=== PATIENT | male | born 1955 | race Caucasian/White ===

== ENCOUNTER 2017-01-09 09:59 | Day surgery (SDC) | payer OTHER ==
[~2017-01-09] VITALS: Ht 182.9 cm; Wt 77.9 kg
[2017-01-09 11:32] VITALS: Ht 182.9 cm; Wt 77.9 kg
[2017-01-09] MEDS ORDERED: PEPCID (11:47)
[2017-01-09] MEDS ORDERED: LISINOPRIL (11:47)
[2017-01-09 11:57] VITALS: BP 134/88; PULSE 86; RESP 26
[2017-01-09] MEDS ORDERED: MIDAZOLAM 1 MG/ML 2 ML INJ ONE ×3 (12:52→12:53)
[2017-01-09 13:05] VITALS: BP 148/98; PULSE 72; RESP 18
[2017-01-09] MEDS ORDERED: FLUMAZENIL 0.5 MG INJ ONE (13:10)
[2017-01-09] MEDS ORDERED: FENTAnyl 50 MCG/ML VIAL ONE (13:11)
--- NOTE | 2017-01-09 13:36 | GILP ---
DATE OF PROCEDURE: NAME OF PROCEDURES: 1. Colonoscopy and biopsy. 2. Tattooing with Ansley ink. INDICATION FOR THE PROCEDURE: Mr. Angel Mcgrath is a 61-year-old male patient who was scheduled for screening colonoscopy. The procedure and possible complications were well explained to the patient, he understood and conse nted to the procedure. DESCRIPTION OF PROCEDURE: Under the influence of fentanyl and Versed, the colonoscope was carefully introduced in the rectum and under direct vision, it was advanced all the way to the cecum. FINDINGS: The patient was noted to have a large sigmoid colon polyp with a thick stalk at 23 cm fro m the anus. It was too big to be removed, so biopsies were taken. The area was tattooed with Ansley ink. He was also noted to have another small polyp in the sigmoid colon and it was removed using t he biopsy forceps. He had diverticulosis of the colon. He also had internal hemorrhoids. He tolerated the procedure very well and there was no complication from the procedure. At the end o f the procedure, he was awake with stable vital signs and he was discharged home to the care of his family. IMPRESSION: 1. Colonoscopy all the way to the cecum. 2. Large sigmoid polyp with a thick stalk at 23 cm from the anus and biopsies were taken for histop athology. 3. The area was tattooed with Ansley ink. 4. Small sigmoid colon polyp was removed using the biopsy forceps. 5. Diverticulosis of the colon. 6. Internal hemorrhoids. PLAN: 1. Await histopathology report. 2. The patient will need surgical removal of the sigmoid polyp because of the large size with thick stalk. Dictated By: VIVIAN KEARNEY/DELGADO Conf#: [id number] DID#: [id number] CC: VIVIAN DOTSON MD;*EndCC*
== END 2017-01-10 08:37 | disposition home or self-care (01) ==
LOC: GIL 09:59
PROVIDERS: ATTEND Internal Medicine Gastroenterology
DX: Z12.11 Encounter for screening for malignant neoplasm of colon (principal); D12.5 Benign neoplasm of sigmoid colon; K57.90 Diverticulosis of intestine, part unspecified, without perforation or abscess without bleeding; I10 Essential (primary) hypertension
CPT/HCPCS: 45380; 45381; 88305; J2250; J3010; Z7610

== ENCOUNTER 2017-03-08 09:32 | Inpatient (IN) | payer OTHER ==
[2017-03-07 12:48] VITALS: Ht 182.9 cm; Wt 75.9 kg
[~2017-03-08] VITALS: Ht 182.9 cm; Wt 75.9 kg
[2017-03-08] VITALS (9 sets, daily range): BP systolic 111–150; BP diastolic 64–89; PULSE 66–86; RESP 16–24
[~2017-03-08 09:32] MED LIST: LISINOPRIL; PEPCID
[2017-03-08] MEDS ORDERED: LISI20TA11 PO (10:25)
[2017-03-08] MEDS ORDERED: FAMO-95 PO (10:26)
[2017-03-08] MEDS ORDERED: FOLI-49 PO (10:27)
[2017-03-08] MEDS ORDERED: MULTI PO (10:28)
[2017-03-08] MEDS ORDERED: CEFAZOLIN 2 GM/50 ML (PMX) 50 ML IVPB SCH (10:42)
[2017-03-08] MEDS ORDERED: Metronidazole 500 MG in NS 100 ML IVPB SCH (10:45)
[2017-03-08] MEDS ORDERED: LACTATED RINGER'S 1,000 ML IV* SCH (10:46)
--- NOTE | 2017-03-08 12:40 | HPN ---
Date/Time of Note Date/Time of Note DATE: 03/08/17 TIME: 12:39 Interval H&P Admission Note Pt. seen H&P reviewed: No system changes LEON RUCKER MD Mar 08, 2017 12:40
[2017-03-08] MEDS ORDERED: morphine SULFATE/PF (10 MG/10 ML) INJ ONE (13:15)
[2017-03-08] MEDS ORDERED: CEFAZOLIN 1 GM INJ ONE (13:47)
[2017-03-08] MEDS ORDERED: metroNIDAZOLE 500 MG/NS (PMX) 100 ML IVPB ONE (13:47)
[2017-03-08] MEDS ORDERED: LIDOCAINE 2% (SDV) 5 ML INJ ONE (13:47)
[2017-03-08] MEDS ORDERED: ROCURONIUM 50 MG INJ ONE (13:47)
[2017-03-08] MEDS ORDERED: SUCCINYLCHOLINE CHLORIDE 100 MG/5 ML SYG IV ONE (13:47)
[2017-03-08] MEDS ORDERED: PROPOFOL 20 ML ONE (13:47)
[2017-03-08] MEDS ORDERED: NALOXONE (0.4 MG/ML) INJ IV PRN (14:30)
[2017-03-08] MEDS ORDERED: DIPHENHYDRAMINE 50 MG INJ IV PRN ×2 (14:30)
[2017-03-08] MEDS ORDERED: PROCHLORPERAZINE 10 MG INJ IV PRN (14:30)
[2017-03-08] MEDS ORDERED: MEPERIDINE 25 MG INJ IV PRN (14:30)
[2017-03-08] MEDS ORDERED: ONDANSETRON 4 MG INJ IV PRN ×3 (14:30→16:00)
[2017-03-08] MEDS ORDERED: HYDROmorphONE 1 MG/ML SYG IV PRN ×3 (14:30→16:00)
[2017-03-08] MEDS ORDERED: METOCLOPRAMIDE 10 MG INJ IV PRN (14:30)
[2017-03-08] MEDS ORDERED: FENTAnyl 50 MCG/ML VIAL IV PRN (14:30)
[2017-03-08] MEDS ORDERED: HYDROmorphONE (0.2 MG/ML) 10ML SYG IV PRN ×3 (14:30)
[2017-03-08] MEDS ORDERED: BUPIVACAINE 0.5% ON-Q-PUMP 270 ML ONE (14:43)
[2017-03-08] MEDS ORDERED: FENTAnyl 50 MCG/ML VIAL ONE (15:13)
[2017-03-08] MEDS ORDERED: BUPIVACAINE 0.5% (SDV) 30 ML INJ ONE (15:18)
[2017-03-08] MEDS ORDERED: SUGAMMADEX SODIUM 200 MG/2 ML VIAL IV ONE (15:34)
--- NOTE | 2017-03-08 15:54 | OPR ---
Date/Time of Note Date/Time of Note DATE: 03/08/17 TIME: 15:41 Operative Report Procedure Date: Mar 08, 2017 Preoperative Diagnosis Sigmoid colon cancer Postoperative Diagnosis (same) Operation Performed 1. Sigmoid colectomy 2. Rigid proctosigmoidoscopy 3. Placement of a postop pain pump Surgeon: LEON RUCKER MD Geography Professor: PATRIZIA AUSTIN M.D. Anesthesia: general Estimated Blood Loss: 50 - 100 ml's Specimens Sigmoid colon Distal margin Complications: None Pt Condition Post Procedure: stable Disposition: PACU Indications Mr. 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 The various treatment options were discussed with the patient, and he elected to proceed with a sigmoidectomy. Informed consent was obtained prior to the procedure. Operative\Procedure Findings Palpable polyp in distal sigmoid colon Procedure Description The patient was brought to the operating room, placed in supine position on the operating room table. Next, after successful administration of general endotracheal anesthesia, the patient was repositioned in the low lithotomy position using Leoncio stirrups. After surgical time-out and administration of perioperative antibiotics, the patient's anterior abdomen, perineum and perianal skin were prepped and draped in the usual sterile fashion and a Degroot urinary catheter was placed under sterile technique. Next, a transverse incision was made approximately 2 fingerbreadths above the patient's pubic symphysis. This incision is approximately 6 cm in length. After making the skin incision with a scalpel, Bovie electrocautery was utilized to dissect downward to reveal the anterior rectus sheath. This was opened transversely using Bovie electrocautery. Next, the anterior rectus sheath was then from the rectus musculature superiorly and inferiorly while tenting up the anterior rectus sheath using Jennifer clamps. The abdomen was then entered in the midline and then making a longitudinal incision between the rectus muscles, taking care not to injure any intraabdominal organs. This was done successfully. Through this Pfannenstiel type incision, an Applied wound retractor was then placed for circumferential wound retraction. We then explored the abdomen through this Pfannenstiel incision and there was no evidence of metastatic disease. Next moist laparotomy pads were then utilized to pack the patient's small intestine out of the pelvis and she was repositioned in the Trendelenburg position. Careful examination of the sigmoid colon revealed a palpable mass in the distal sigmoid colon. This corresponded to her known history of sigmoid colon polyp. We then elected to proceed with a sigmoidectomy via the Pfannenstiel incision due to the extensive redundancy of the patient's sigmoid colon. Next, we divided the bowel using a Contour bowel stapler at the mid sigmoid colon and then used a LigaSure tissue sealing device to divide the sigmoid mesentery towards the root of the superior rectal artery as it came off the inferior mesenteric artery. The proximal colon was then packed off into the upper abdomen again using moist laparotomy pads and we were able to carefully isolate the superior rectal artery and vein. In so doing, we also identified and preserved the left and right ureters. Careful dissection allowed us to enter the presacral plane inferior to the superior rectal artery and vein using Bovie electrocautery. In so doing, we had circumferentially isolated this vascular bundle. This was then ligated using the LigaSure tissue sealant device. We continued our dissection downward to a point approximately 5 cm distal to the palpable sigmoid colon lesion. This corresponded to the junction between the patient's rectum and sigmoid colon. At this point, we divided the mesorectum using both Bovie electrocautery and the LigaSure tissue sealant device. Another firing of the Contour bowel stapler was used at this location to divide the proximal rectum. In so doing, the sigmoid colon was then freed and passed off the surgical field. It was examined by a pathologist in the operating room and revealed a pedunculated sigmoid colon polyp with grossly clear circumferential margins and widely clear proximal and distal margins. We then examined the patient's pelvis for bleeding and when none was found, we proceeded to perform end-to-end anastomosis between the sigmoid colon and the rectum. This was done by draping off the patient's anterior abdomen with sterile towels placing an auto pursestring suture device on the divided end sigmoid colon and removing the stapled end sharply. An anvil from a 29 mm EEA stapler was then placed into the colon and secured using the pursestring device. Next, we then passed the corresponding EEA stapler through the patient' s anus into the rectum and performed an end-to-end anastomosis between the colon and the rectum using the standard technique. Once this was accomplished, we found 2 complete anastomotic donuts within the stapler. We then proceeded to submerge the colorectal anastomosis with sterile water in the pelvis and clamped the bowel proximal to the anastomosis. A rigid proctosigmoidoscopy was then performed to examine the colorectal anastomosis. The patient was found to have an anastomosis approximately 15 cm from the anal verge and healthy mucosa was found up to and including the stapled anastomosis. The bowel was pressurized via the proctoscope and no bubbles were seen to come from the submerged anastomosis. The bowel was decompressed via the proctoscope and it was removed without complication. Now that the sigmoid colon had been removed and the colorectal anastomosis was accomplished, we suctioned the patient's pelvis until dry and removed all laparotomy pads and instruments from the patient's abdomen. We removed the Applied wound retractor from the Pfannenstiel incision. We then closed the peritoneum using a running 2-0 Vicryl suture and then placed 2 On-Q pain pump catheters in the subfascial plane above the rectus musculature, but below the anterior rectus sheath. This was done suing the needle trocars accompanying the pain pump catheters. Once these [address], we closed the anterior rectus sheath using a running #0 PDS suture. Rachael's fascia was reapproximated using interrupted 2-0 Vicryl suture and the skin incision was closed using a running 4-0 Monocryl stitch in the subcuticular fashion. Dermabond skin adhesive was applied to the skin edges as well as to the point of which the pain pump catheters emerged from the patient's anterior abdominal wall. A total of 10 mL of 0.5% Marcaine without epinephrine was injected into the subfascial plane via the pain pump catheters and the procedure was complete. The patient was then returned to the supine position on the operating room table. Anesthesia was discontinued and she was extubated in the operating room without complication. She was then transferred to recovery room in stable condition. Copies To: CC: VIVIAN DOTSON MD, JEFFREY P MD Mar 08, 2017 15:51
[2017-03-08] MEDS ORDERED: LORAZEPAM 2 MG INJ IV PRN (16:30)
[2017-03-08] MEDS ORDERED: ACETAMINOPHEN 1000MG/100ML IV 100 ML ONE (16:33)
[2017-03-08] MEDS ORDERED: KETOROLAC 30 MG INJ ONE (16:33)
[2017-03-08 17:07] LABS: ADD SCAN DIFF NO
[2017-03-08 17:09] LABS: BASOPHIL # 0.1 10^3/ul (0.0-0.1); BASOPHILS % 0.8 % (0.0-2.0); EOSINOPHILS % 0.3 % (0.0-7.0); HEMATOCRIT 40.4 % (42.0-52.0); HEMOGLOBIN 13.7 g/dl (14.0-18.0); LYMPHOCYTES # 0.9 10^3/ul (0.8-2.9); LYMPHOCYTES % 7.5 % (15.0-51.0); MEAN CORPUSCULAR HEMOGLOBIN 33.5 pg (29.0-33.0); MEAN CORPUSCULAR HGB CONC 33.9 g/dl (32.0-37.0); MEAN CORPUSCULAR VOLUME 98.8 fl (82.0-101.0); MEAN PLATELET VOLUME 9.6 fl (7.4-10.4); MONOCYTE # 0.7 10^3/ul (0.3-0.9); MONOCYTES % 6.1 % (0.0-11.0); PLATELET COUNT 193 10^3/UL (140-415); RED BLOOD COUNT 4.09 10^6/ul (4.70-6.10); RED CELL DISTRIBUTION WIDTH 12.8 % (11.5-14.5); WHITE BLOOD COUNT 11.8 10^3/ul (4.8-10.8)
[2017-03-08 17:29] LABS: CALCIUM 9.4 mg/dl (8.4-10.2); CREATININE 0.89 mg/dl (0.61-1.24); POTASSIUM 3.8 mmol/L (3.5-5.1)
[2017-03-08] MEDS: CEFAZOLIN 2 GM/50 ML (PMX) 50 ML IVPB SCH (17:43)
[2017-03-08] MEDS: KETOROLAC 30 MG INJ IV SCH ×2 (17:44→23:31)
[2017-03-08] MEDS: ACETAMINOPHEN 1000MG/100ML IV 100 ML IVPB SCH (17:54)
[2017-03-08] MEDS ORDERED: SOD CHLORIDE 0.9% 1,000 ML IV SCH (18:00)
[2017-03-08] MEDS: D5-NS + KCL 20 MEQ 1,000 ML IV SCH (19:00)
[2017-03-08] MEDS: metroNIDAZOLE 500 MG/NS (PMX) 100 ML IVPB SCH (19:00)
[2017-03-08] MEDS: FAMOTIDINE 20 MG INJ IV SCH (20:20)
[2017-03-09] MEDS: ACETAMINOPHEN 1000MG/100ML IV 100 ML IVPB SCH ×5 (00:18→23:58)
[2017-03-09] MEDS: metroNIDAZOLE 500 MG/NS (PMX) 100 ML IVPB SCH ×2 (02:19→10:10)
[2017-03-09 03:10] VITALS: BP_SYST 102; BP_SYST 92; BP_DIAS 52; BP_DIAS 72; RESP 18
[2017-03-09] MEDS: CEFAZOLIN 2 GM/50 ML (PMX) 50 ML IVPB SCH ×2 (04:17→09:24)
[2017-03-09] MEDS: KETOROLAC 30 MG INJ IV SCH ×4 (05:39→23:54)
[2017-03-09 06:09] LABS: ADD SCAN DIFF NO
[2017-03-09] MEDS: D5-NS + KCL 20 MEQ 1,000 ML IV SCH ×3 (06:34→18:11)
[2017-03-09] MEDS: ENOXAPARIN 40 MG/0.4 ML SYG SC SCH (06:37)
[2017-03-09 06:52] LABS: CALCIUM 8.4 mg/dl (8.4-10.2); CREATININE 0.96 mg/dl (0.61-1.24); POTASSIUM 3.7 mmol/L (3.5-5.1)
[2017-03-09 08:03] VITALS: BP 133/85; RESP 20
--- NOTE | 2017-03-09 08:11 | PN ---
Date/Time of Note Date/Time of Note DATE: 03/09/17 TIME: 08:05 Assessment/Plan VTE Prophylaxis VTE Prophylaxis Intervention: ambulation, LMWH, SCD's Lines/Catheters IV Catheter Type (from Nrs): Peripheral IV Degroot in Place (from Nrs): No Assessment/Plan Chief Complaint/Hosp Course Sigmoid colon cancer. Problems: Assessment/Plan Mr. 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 He is doing well. He denies any pain, nausea or vomiting. His urinary catheter was removed this morning. He has hyponatremia which was identified preoperatively. This is likely due to his history of alcohol abuse (he has reportedly stopped drinking several days ago). 1. Clear liquid diet, advance as tolerated 2. Encourage ambulation 3. Wean D5NS once tolerating PO's Subjective 24 Hr Interval Summary Mr. Mcgrath reports that he is doing well. He denies any nausea/vomiting or pain. Constitutional: no complaints Feeding: clear Pain Control: well controlled Exam/Review of Systems Vital Signs Vitals Vital Signs Date Time Temp Pulse Resp B/P Pulse Ox O2 Delivery O2 Flow Rate FiO2 03/09/17 08:03 97.7 68 20 133/85 96 03/08/17 18:15 Room Air 03/08/17 17:02 2.0 Intake and Output 03/08/17 03/08/17 03/09/17 15:00 23:00 07:00 Intake Total 200 ml 1590 ml Output Total 525 ml 460 ml Balance -325 ml 1130 ml Exam Constitutional: alert, oriented Psych: nl mood/affect, no complaints Gastrointestinal: non-tender, soft, surgical scars (Pfannenstiel incision is healing well, On-Q pump in place) Results Result Diagram: 03/08/17 1645 03/09/17 0531 LEON RUCKER MD Mar 09, 2017 08:10
[2017-03-09 09:02] LABS: BASOPHIL # 0.1 10^3/ul (0.0-0.1); BASOPHILS % 0.7 % (0.0-2.0); EOSINOPHILS # 0.1 10^3/ul (0.0-0.5); EOSINOPHILS % 0.8 % (0.0-7.0); HEMATOCRIT 32.8 % (42.0-52.0); HEMOGLOBIN 11.1 g/dl (14.0-18.0); LYMPHOCYTES # 0.8 10^3/ul (0.8-2.9); MEAN CORPUSCULAR HGB CONC 33.8 g/dl (32.0-37.0); MEAN CORPUSCULAR VOLUME 100.6 fl (82.0-101.0); MONOCYTE # 1.1 10^3/ul (0.3-0.9); MONOCYTES % 14.1 % (0.0-11.0); NEUTROPHIL # 5.6 10^3/ul (1.6-7.5); PLATELET COUNT 156 10^3/UL (140-415); RED BLOOD COUNT 3.26 10^6/ul (4.70-6.10); RED CELL DISTRIBUTION WIDTH 12.8 % (11.5-14.5); WHITE BLOOD COUNT 7.5 10^3/ul (4.8-10.8)
[2017-03-09] MEDS: FAMOTIDINE 20 MG INJ IV SCH ×2 (09:23→20:28)
[2017-03-09 14:11] VITALS: BP 135/83; RESP 16
--- NOTE | 2017-03-09 14:12 | CONS ---
Date/Time of Note Date/Time of Note DATE: 03/09/17 TIME: 14:10 Consultation Date/Type/Reason Admit Date/Time Mar 08, 2017 at 09:32 Initial Consult Date 03/09/17 Type of Consultation: Anesthesiology Reason for Consultation Follow up 24 HR Interval Summary Free Text/Dictation Pt seen and examined at bedside is POD#1 s/p colectomy. Pt received duramorph spinal for post op pain control. He is currently doing well and walking around. States he has very minimal pain. No N/V/D/C/RILEY/Numbness in extremities. Will follow. Exam/Review of Systems Vital Signs Vitals Vital Signs Date Time Temp Pulse Resp B/P Pulse Ox O2 Delivery O2 Flow Rate FiO2 03/09/17 08:03 97.7 68 20 133/85 96 03/08/17 18:15 Room Air 03/08/17 17:02 2.0 Intake and Output 03/08/17 03/08/17 03/09/17 15:00 23:00 07:00 Intake Total 200 ml 1590 ml Output Total 525 ml 460 ml Balance -325 ml 1130 ml Results Result Diagram: 03/09/17 0531 03/09/17 0531 Results 24 hrs Laboratory Tests Test 03/08/17 16:45 03/09/17 05:31 White Blood Count 11.8 H 7.5 # Red Blood Count 4.09 L 3.26 #L Hemoglobin 13.7 L 11.1 L Hematocrit 40.4 L 32.8 L Mean Corpuscular Volume 98.8 100.6 Mean Corpuscular Hemoglobin 33.5 H 34.0 H Mean Corpuscular Hemoglobin Concent 33.9 33.8 Red Cell Distribution Width 12.8 12.8 Platelet Count 193 156 Mean Platelet Volume 9.6 10.0 Neutrophils % 85.0 H 74.0 Lymphocytes % 7.5 L 10.0 L Monocytes % 6.1 14.1 H Eosinophils % 0.3 0.8 Basophils % 0.8 0.7 Nucleated Red Blood Cells % 0.0 0.0 Neutrophils # 10.0 H 5.6 Lymphocytes # 0.9 0.8 Monocytes # 0.7 1.1 H Eosinophils # 0.0 0.1 Basophils # 0.1 0.1 Nucleated Red Blood Cells # 0.0 0.0 Sodium Level 127 L 127 L Potassium Level 3.8 3.7 Chloride Level 96 L 104 Carbon Dioxide Level 23 24 Anion Gap 12 3 #L Blood Urea Nitrogen 10 9 Creatinine 0.89 0.96 Glucose Level 105 99 Calcium Level 9.4 8.4 Medications Medications Current Medications Naloxone HCl (Narcan) 0.1 mg Q2M PRN IV FOR RESP RATE 8 OR LESS; Start at 14:30; Stop 03/09/17 at 14:29 Hydromorphone HCl (Dilaudid) 0.2 mg Q3H PRN IV PAIN LEVEL 1-5; Start 03/08/17 at 14:30; Stop 03/09/17 at 14:29 Hydromorphone HCl (Dilaudid) 0.4 mg Q3H PRN IV PAIN LEVEL 6-10; Start 03/08/17 at 14:30; Stop 03/09/17 at 14:29 Diphenhydramine HCl (Benadryl) 25 mg Q6H PRN IV ITCHING Last administered on 16:41; Admin Dose 25 MG; Start 03/08/17 at 14:30; Stop 03/09/17 at 14:29 Ondansetron HCl (Zofran Inj) 4 mg Q6H PRN IV NAUSEA AND/OR VOMITING; Start at 14:30; Stop 03/09/17 at 14:29 Prochlorperazine 10 mg 10 mg ONCE PRN IV NAUSEA AND/OR VOMITING; Start 03/08/17 at 14:30; Stop 03/09/17 at 14:29 Cefazolin Sodium/ Dextrose 50 ml @ 100 mls/hr Q8H IVPB Last administered on 09:24; Admin Dose 100 MLS/HR; Start 03/08/17 at 18:00; Stop 03/09/17 at 17:59 Metronidazole (Flagyl 500 Mg (Pmx)) 100 ml @ 100 mls/hr Q8H IVPB Last administered on 03/09/17 10:10; Admin Dose 100 MLS/HR; Start 03/08/17 at 18:00 ; Stop 03/09/17 at 17:59 Hydromorphone HCl (Dilaudid) 0.4 mg Q2H PRN IV PAIN; Start 03/08/17 at 16:00 Ketorolac Tromethamine (Toradol) 30 mg Q6 IV Last administered on 03/09/17 12: 28; Admin Dose 30 MG; Start 03/08/17 at 18:00; Stop 03/11/17 at 17:59 Ondansetron HCl (Zofran Inj) 4 mg Q6H PRN IV NAUSEA AND/OR VOMITING; Start at 16:00 Famotidine 20 mg 20 mg Q12 IV Last administered on 03/09/17 09:23; Admin Dose 20 MG; Start 03/08/17 at 21:00 Potassium Chloride/Dextrose/ Sod Cl (D5-NS + KCl 20 Meq) 1,000 ml @ 125 mls/hr Q8H IV Last administered on 03/09/17 06:34; Admin Dose 125 MLS/HR; Start 03/08 at 18:00 Enoxaparin Sodium 40 mg 40 mg DAILY@07 SC Last administered on 03/09/17 06:37 ; Admin Dose 40 MG; Start 03/09/17 at 07:00 Acetaminophen (Ofirmev 1000mg/ 100ml Iv) 100 ml @ 400 mls/hr Q6 IVPB Last administered on 03/09/17 13:07; Admin Dose 400 MLS/HR; Start 03/08/17 at 18:00 Lorazepam (Ativan) 1 mg Q6H PRN IV AGITATION Last administered on 03/09/17 02: 18; Admin Dose 1 MG; Start 03/08/17 at 16:30 ABDULAZIZ HER Mar 09, 2017 14:12
[2017-03-09 20:43] VITALS: BP 157/95; RESP 18
[2017-03-09] MEDS ORDERED: TAMSULOSIN (SR) 0.4 MG CAP PO SCH (21:00)
[2017-03-10 02:02] VITALS: BP 135/87; RESP 16
[2017-03-10] MEDS: D5-NS + KCL 20 MEQ 1,000 ML IV SCH ×2 (02:51→10:22)
[2017-03-10 05:50] LABS: ADD SCAN DIFF NO
[2017-03-10 05:55] LABS: ABNORMAL IP MESSAGE 1; BASOPHIL # 0.1 10^3/ul (0.0-0.1); BASOPHILS % 0.9 % (0.0-2.0); EOSINOPHILS # 0.2 10^3/ul (0.0-0.5); EOSINOPHILS % 2.4 % (0.0-7.0); HEMATOCRIT 32.6 % (42.0-52.0); LYMPHOCYTES # 0.6 10^3/ul (0.8-2.9); MEAN CORPUSCULAR HEMOGLOBIN 33.7 pg (29.0-33.0); MEAN CORPUSCULAR HGB CONC 33.7 g/dl (32.0-37.0); MEAN PLATELET VOLUME 9.9 fl (7.4-10.4); MONOCYTE # 0.8 10^3/ul (0.3-0.9); MONOCYTES % 12.1 % (0.0-11.0); NEUTROPHIL # 5.3 10^3/ul (1.6-7.5); NEUTROPHILS % 76.3 % (39.0-77.0); PLATELET COUNT 168 10^3/UL (140-415); RED BLOOD COUNT 3.26 10^6/ul (4.70-6.10); RED CELL DISTRIBUTION WIDTH 12.7 % (11.5-14.5)
[2017-03-10] MEDS: KETOROLAC 30 MG INJ IV SCH (06:16)
[2017-03-10] MEDS: ACETAMINOPHEN 1000MG/100ML IV 100 ML IVPB SCH (06:16)
[2017-03-10 06:19] LABS: CALCIUM 8.4 mg/dl (8.4-10.2); CREATININE 0.93 mg/dl (0.61-1.24); POTASSIUM 4.5 mmol/L (3.5-5.1)
[2017-03-10] MEDS: ENOXAPARIN 40 MG/0.4 ML SYG SC SCH (06:26)
[2017-03-10 08:20] VITALS: BP 134/86; RESP 16
[2017-03-10] MEDS: FAMOTIDINE 20 MG INJ IV SCH (09:00)
--- NOTE | 2017-03-10 11:14 | PDOCDIS ---
Discharge Instructions DIAGNOSIS Discharge Diagnosis Sigmoid colon cancer CONDITION Patient Condition: Good HOME CARE INSTRUCTIONS: Diet Instructions: High fiber, low residue dietSpecial Diet: SOFT ACTIVITY: Activity Restrictions: Avoid heavy lifting (for 6 weeks) Bathing Restrictions: Shower FOLLOW UP/APPOINTMENTS Follow-up Plan Come to Dr. Ceron's office on 03/12/17, after 1:30 pm to remove your pain pump. OTHER ORDERS: Other Orders: Keep a dry dressing on your pain pump catheters. LEON CERON MD Mar 10, 2017 11:14
[2017-03-10] MEDS ORDERED: HYDR-906 PO (11:17)
--- NOTE | 2017-03-10 11:25 | PN ---
Date/Time of Note Date/Time of Note DATE: 03/10/17 TIME: 11:20 Assessment/Plan VTE Prophylaxis VTE Prophylaxis Intervention: ambulation, LMWH, SCD's Lines/Catheters IV Catheter Type (from Nrs): Peripheral IV Degroot in Place (from Nrs): No Assessment/Plan Chief Complaint/Hosp Course Sigmoid colon cancer. Problems: Assessment/Plan POD#2 s/p sigmoid colectomy for colon cancer. He is doing well and has been voiding after removal of his urinary catheter this morning. He denies pain and is tolerating a diet. He is passing flatus and denies nausea. I will discharge him home with is On-Q pump in place. He will follow up with me this Sunday to remove his pain pump catheters. Subjective 24 Hr Interval Summary Mr. Mcgrath reports that he is doing well. He is tolerating a diet, ambulating well and passing gas. He denies pain. Constitutional: ambulates, flatus, improved Feeding: advancing diet Pain Control: well controlled Exam/Review of Systems Vital Signs Vitals Vital Signs Date Time Temp Pulse Resp B/P Pulse Ox O2 Delivery O2 Flow Rate FiO2 03/10/17 08:20 97.8 73 16 134/86 91 03/08/17 18:15 Room Air 03/08/17 17:02 2.0 Intake and Output 03/09/17 03/09/17 03/10/17 15:00 23:00 07:00 Intake Total 250 ml 2660 ml 2140 ml Output Total 300 ml 3400 ml Balance 250 ml 2360 ml -1260 ml Exam Constitutional: alert, oriented, well developed Psych: no complaints Gastrointestinal: non-tender, soft, surgical scars (incision is healing well, On-Q pump in place) Results Result Diagram: 03/10/1720 03/10/1720 LEON RUCKER MD Mar 10, 2017 11:25
--- NOTE | 2017-03-10 11:29 | DS ---
Date/Time of Note Date/Time of Note DATE: 03/10/17 TIME: 11:25 Discharge Summary Admission/Discharge Info Admit Date/Time Mar 08, 2017 at 09:32 Discharge Date/Time March 10, 2017 Discharge Diagnosis Sigmoid colon cancer Patient Condition: Good Procedures Sigmoid colectomy Hx of Present Illness Mr. Mcgrath is a 62 y/o who was recently diagnosed with a malignant sigmoid colon polyp. Hospital Course Mr. Mcgrath was admitted to [facility] on 03/08/17 in order to undergo an elective sigmoid colon resection. He tolerated the procedure well and by POD#2 he was tolerating a diet, ambulating without difficulty and passing flatus. He was discharged home on POD#2. Home Meds Reported Medications Multivitamins* (Theragran*) 1 Tab Tab, 1 TAB PO DAILY, TAB 03/08/17 Folic Acid* (Folic Acid*) 1 Mg Tablet, 1 MG PO DAILY, TAB 03/08/17 Famotidine* (Pepcid* AC) 20 Mg Tablet, 20 MG PO DAILY, #30 TAB 03/08/17 Lisinopril* (Lisinopril*) 20 Mg Tablet, 20 MG PO DAILY, #30 TAB 03/08/17 Discontinued Reported Medications [Pepcid] No Conflict Check 01/09/17 [Lisinopril] No Conflict Check 01/09/17 Follow-up Plan Follow up with Dr. Ceron on 03/12/17 to remove your pain pump catheters. Primary Care Provider [facility] Time spent on discharge: > 30 minutes Pending Labs Laboratory Tests Test 03/10/17 05:20 White Blood Count 7.010^3/ul (4.8-10.8) Red Blood Count 3.2610^6/ul (4.70-6.10) Hemoglobin 11.0g/dl (14.0-18.0) Hematocrit 32.6% (42.0-52.0) Mean Corpuscular Volume 100.0fl (82.0-101.0) Mean Corpuscular Hemoglobin 33.7pg (29.0-33.0) Mean Corpuscular Hemoglobin Concent 33.7g/dl (32.0-37.0) Red Cell Distribution Width 12.7% (11.5-14.5) Platelet Count 31064^3/UL (140-415) Mean Platelet Volume 9.9fl (7.4-10.4) Neutrophils % 76.3% (39.0-77.0) Lymphocytes % 8.0% (15.0-51.0) Monocytes % 12.1% (0.0-11.0) Eosinophils % 2.4% (0.0-7.0) Basophils % 0.9% (0.0-2.0) Nucleated Red Blood Cells % 0.0/100WBC (0.0-0.0) Neutrophils # 5.310^3/ul (1.6-7.5) Lymphocytes # 0.610^3/ul (0.8-2.9) Monocytes # 0.810^3/ul (0.3-0.9) Eosinophils # 0.210^3/ul (0.0-0.5) Basophils # 0.110^3/ul (0.0-0.1) Nucleated Red Blood Cells # 0.010^3/ul (0.0-0.0) Sodium Level 136mmol/L (135-144) Potassium Level 4.5mmol/L (3.5-5.1) Chloride Level 105mmol/L (97-110) Carbon Dioxide Level 24mmol/L (21-31) Anion Gap 12 (8-16) Blood Urea Nitrogen 6mg/dl (7-20) Creatinine 0.93mg/dl (0.61-1.24) Glucose Level 111mg/dl (70-220) Calcium Level 8.4mg/dl (8.4-10.2) LEON CERON MD Mar 10, 2017 11:28
[2017-03-10] MEDS ORDERED: HYDROCODONE/APAP (5/325) TAB PO PRN (11:30)
[2017-03-10] MEDS ORDERED: HYDR-3498 PO (12:15)
== END 2017-03-10 13:02 | disposition home or self-care (01) | DRG 330 ==
LOC: REC 09:32 → MS2 18:15
PROVIDERS: ADMIT Colon & Rectal Surgery; ATTEND Colon & Rectal Surgery
PROC: 0DBN0ZZ Excision of Sigmoid Colon, Open Approach (ICD-10-PCS; principal; 2017-03-08 12:00)
DX: C18.7 Malignant neoplasm of sigmoid colon (principal); E87.1 Hypo-osmolality and hyponatremia; F10.10 Alcohol abuse, uncomplicated
CPT/HCPCS: 80048; 85025; 86850; 86900; 86901; 87086; 88307; J0131; J0690; J1200; J1650; J1885; J2060; J2274; J3010; J3480; J7030; J7120; J7999

== ENCOUNTER 2018-03-15 07:16 | Day surgery (SDC) | END 2018-03-15 12:40 | disposition home or self-care (01) ==